=== PATIENT | female | born 1950 | race Asian ===

== ENCOUNTER 2016-08-29 10:31 | Observation (INO) | payer MEDICARE, OTHER ==
[~2016-08-29] VITALS: Ht 149.9 cm; Wt 61.1 kg
--- NOTE | ~2016-08-29 | CST ---
Cardiac Perfusion Imaging Demographics Patient Name URMILA Martin Gender Female Patient Number [id number] Race Visit Number [id number] Ethnicity Corporate ID Room Number 433 Accession Number [id number] Height 59 inches Date of 1950 Weight 134 pounds Age 66 year(s) BSA 1.56 m Referring Physician Richmond Gary BMI 27.06 kg/m Interpreting Physician [facility] [address] [place] Date of study 08/30/2016 King Talon Sutton MD Supervising MD/MLP King Talon DESAI Technologist Ben Kaplan Ordering Physician Richmond Gary Stress Omar Pérez MD predictive maintenance technician Stress ECG Reading [facility] Nurse Rena Dutton Physician King Talon Bryant The procedure was explained in detail to the patient. Risks, complications and alternative treatments were reviewed. Written consent was obtained. Medications Reviewed with Patient prior to Procedure. Procedure Procedure Type: Nuclear Stress Test:Cardiac Study SF Procedure Start time: 08/30/2016 08:10 Indications: Chest pain, Hypertension and Hyperlipidemia. Risk Factors The patient risk factors include:hypertension, insulin treated diabetes mellitus and dyslipidemia. Conclusions Summary Perfusion Images: The overall quality of the study is good. Left ventricular cavity is noted to be normal on the stress and rest studies. There is no evidence of abnormal lung activity. The right ventricle is not visualized and cannot be assessed. Stress SPECT images demonstrate homogenous tracer distribution throughout the myocardium. Rest SPECT images demonstrate homogenous tracer distribution throughout the myocardium. Gated SPECT imaging reveals normal myocardial thickening and wall motion. The left ventricular ejection fraction was calculated to be 79%. Impression ECG portion of stress test is clinically negative for ischemia by diagnostic criteria. Myocardial perfusion imaging is normal. Overall left ventricular systolic function was normal without regional wall motion abnormalities. There are no previous studies for comparison. Stress Protocols Resting ECG Normal sinus rhythm. Nonspecific ST-T wave changes. Resting HR:61 bpm Resting BP:112/76 mmHg Stress Protocol:Pharmacologic Predicted HR: 154 bpm Test duration: 06:00 min Reason for termination:Infusion complete ECG Findings Normal sinus rhythm. Nonspecific ST-T wave changes. Complications Procedure complication: None. Stress Interpretation Unable to achieve target heart rate with treadmill-changed to Lexiscan stress test Appropriate hemodynamic response to Lexiscan. No significant ST-T wave changes with Lexiscan. ECG portion is negative for ischemia by diagnostic criteria. Imaging Results Summed scores - Summed stress score: 0 - Summed rest score: 0 - Summed difference score: 0 Stress ejection Ejection fraction:79 % EDV :75 ml ESV :16 ml Stroke volume :59 ml LV mass :124 gr Imaging Protocols Rest Stress Isotope:Tc99m Myoview IV Isotope: Tc99m Myoview IV Isotope dose:10.8 mCi Isotope dose:31.8 mCi Date:08/30/2016 06:40 Date:08/30/2016 08:10 Technique: SPECT Technique: Gated Supine SPECT Supine IV remains in place after procedure. Scan Time:45-60 minutes post Scan Time:45-60 minutes post injection injection Procedure Medications - Regadenoson (Lexiscan) 0.4 mg IV over 10-15 sec. I.V. 0.4 mg. Medications administered per verbal order and read back to physician prior to administration. Medical History Admission Data Admission date: 08/29/2016 Admission Time: 12:35 Hospital Status: Inpatient. Signatures
--- NOTE | ~2016-08-29 | ECH ---
Transthoracic Echocardiography Report (TTE) Demographics Patient Name CHANTEL KEARNS Date of Study 08/29/2016 Patient Number [id number] Visit Number [id number] Date of 1950 Room Number 433 Accession Number [id number] Gender Female Age 66 year(s) Referring Scott Martin Tele Rn Radhanghia Sullivan [facility] Physician Physician Interpreting Brandi Porter MD Fiber Worker Physician Richmond Gary MD Supervising Ordering Physician Richmond Gary MD/CLARICE GUZMAN Nurse Stress Line Service Supervisor Conclusions Summary Technically adequate exam. The estimated left ventricular ejection fraction is 60%. Mild left ventricular hypertrophy. There is trivial aortic regurgitation by color Doppler. Mild mitral and tricuspid regurgitation. Procedure Type of Study TTE procedure:Echo Complete SF. Procedure Date Date: 08/29/2016 Start: 04:08 PM Technical Quality: Adequate visualization Indications:Atypical Chest Pain and Hypertension. Appropriate Use Criteria: 9 Height: 59 inches Weight: 134 pounds BSA: 1.56 m Rhythm: Within normal limits HR: 61 bpm BP: 159/74 mmHg M-Mode/2D Measurements LV Diastolic Dimension: 4.61 cm LV Systolic Dimension: 2.69 cm LV Septum Diastolic: 0.82 cm LV PW Diastolic: 1.11 cm AO Root Dimension: 2.75 cm Cardiac Output: 2.87 l/min LA Dimension: 2.72 cm Cardiac Index: 1.84 l/min*m RV Diastolic Dimension: 1.97 cm LA volume index: 27 ml/m LVOT: 1.65 cm LVOT VTI: 22.01 cm RV Base: 2.5 cm LV Stroke volume: 47.04 ml RV Mid: 1.6 cm LV Stroke volume index: 30.15 ml/m RV Length: 5.6 cm Doppler Measurements AV Peak Velocity: 1.05 m/s MV Peak E-Wave: 1.04 m/s AV Peak Gradient: 4.41 mmHg MV Peak A-Wave: 0.69 m/s AV Mean Gradient: 2.19 mmHg MV E/A Ratio: 1.5 LVOT Peak Velocity: 0.85 m/s MV P1/2t: 43 msec AV Area (Continuity):2.02 cm TR Velocity:2.82 m/s MV Deceleration Time: 148.4 msec TR Gradient:31.81 mmHg MV Area (PHT): 5.11 cm Estimated RAP:3 mmHg PV Peak Velocity: 0.7 m/s Estimated RVSP: 35 mmHg PV Peak Gradient: 1.98 mmHg Estimated PASP: 34.81 mmHg RA Area: 16.37 cm Findings Left Ventricle The left ventricle is normal in size . Mild left ventricular hypertrophy. Diastolic assessment reveals Grade II pseudonormal diastolic function . Right Ventricle Normal right ventricle structure and function. Left Atrium Normal left atrial size. Right Atrium Normal right atrial size. Mitral Valve Mild thickening of the mitral valve leaflets. Mild mitral regurgitation by color Doppler. Aortic Valve The aortic valve is mildly sclerotic. There is trivial aortic regurgitation by color Doppler. Tricuspid Valve Normal appearing tricuspid valve. Mild tricuspid regurgitation by color Doppler. Estimated pulmonary pressures within normal range. Pulmonic Valve Normal pulmonic valve structure and function. Pericardial Effusion No evidence of pericardial effusion. Miscellaneous Visualized portions of the aortic root and ascending aorta appear normal in size. Pleural Effusion No evidence of pleural effusion. Contractility Score LV regional wall motion:(0-Non visualized 1-Normal 2-Hypokinesis 3-Akinesis 4-Dyskinesis 5-Aneurysm) Signature
[2016-09-01] MEDS ORDERED: PRILOSEC DPS20 MG PO (08:36)
[2016-09-01] MEDS ORDERED: ZANAFLEX4 MG PO ×2 (08:37)
[2016-09-01] MEDS ORDERED: JANUMET 50-1,01 EACH PO (08:37)
[2016-09-01] MEDS ORDERED: LANTUS SOL100 UNIT/1 SQ (08:37)
[2016-09-01] MEDS ORDERED: LOPRESSOR DPS50 MG PO (08:38)
[2016-09-01] MEDS ORDERED: THERAPEUTIC MUL1 TAB PO (08:38)
[2016-09-01] MEDS ORDERED: ASA CHILDREN'S81 MG PO (08:39)
[2016-09-01] MEDS ORDERED: CALCIUM 600 +1 EAC3 PO (08:39)
[2016-09-01] MEDS ORDERED: COLACE-DPS100 MG PO (08:39)
[2016-09-01] MEDS ORDERED: EXCEDRIN DPS1 TAB PO (08:39)
[2016-09-01] MEDS ORDERED: TRILIPIX45 MG PO (08:40)
--- NOTE | 2016-09-04 11:58 | HP ---
ADMIT: 08/29/2016 RM/LOC: [address] [facility] MR#: [id number] [address] [address] CHANTEL KEARNS [address] [place] [address] History and Physical SEX: F AGE: 66 : 1950 DATE OF SERVICE: CHIEF COMPLAINT: Chest pain. HISTORY OF PRESENT ILLNESS: Chantel is a 66-year-old, female admitted to [facility] through the ER on August 29, 2016. She presents with 48-hour history of atypical chest pain. She states at times the pain was more like a pressure, at times it was sharp. Sometimes, it was just a vague discomfort. She states it has been there off and on all weekend. She states at times it is worse with activity and sometimes it seems to get worse when she is resting. She denied any nausea, vomiting, palpitations, or syncopal episodes. She presented to the ER where EKG and labs were obtained. She was given a couple sublingual nitroglycerin. Given her numerous cardiac risk factors, she was admitted for further evaluation and management. PAST MEDICAL HISTORY: Includes cholecystectomy, hysterectomy, peptic ulcer surgery with exploratory laparotomy, and open reduction and internal fixation of an elbow fracture. Illnesses include diabetes mellitus type 2, hypertension, and hyperlipidemia with no evidence of diabetic retinopathy. MEDICATIONS: Listed in her chart and include: 1. Omeprazole 20 mg at bedtime. 2. Zanaflex 4 mg at bedtime and 2 to 4 mg b.i.d. p.r.n. muscle spasms. 3. Janumet mg b.i.d. 4. Lantus 42 units at bedtime. 5. Metoprolol 50 mg b.i.d. 6. Multivitamin daily. 7. Calcium with vitamin D daily. 8. Aspirin 81 mg daily. 9. Excedrin p.r.n. ALLERGIES: NONE KNOWN. SOCIAL HISTORY: Is that of a 66-year-old, female. She does not smoke. FAMILY HISTORY: Remarkable for hypertension and diabetes. REVIEW OF SYSTEMS: Remarkable for chest pain. Remainder of review of systems negative. PHYSICAL EXAMINATION: VITAL SIGNS: Include blood pressure is elevated currently at 159/74 with a pulse of 66, respiratory rate 15, and temp 98.2. GENERAL APPEARANCE: Is that of a 66-year-old female, who is alert, oriented, appears in no acute distress. She is sitting comfortably, eating supper. HEENT: Pupils reactive. Membranes are moist. NECK: Without nodes or masses. HEART: Regular without murmur. LUNGS: Clear. ADMIT: 08/29/2016 RM/LOC: [address] [facility] MR#: [id number] [address] [address] CHANTEL KEARNS [facility] [place] [address] History and Physical SEX: F AGE: 66 : 1950 CHEST: Nontender to palpation. ABDOMEN: Soft, nontender, benign. No hepatosplenomegaly. BREASTS, GENITOURINARY, AND RECTAL: Deferred. EXTREMITIES: No clubbing, cyanosis, or edema. NEUROLOGIC: Grossly normal including light touch, strength, or DTRs. LABORATORY AND DIAGNOSTIC DATA: Chest x-ray is normal. EKG shows normal sinus rhythm and normal EKG. A chemistry panel is essentially normal. Sodium 143, potassium 4.4, BUN 14, and creatinine 0.8. Note her CPK was 196 with an MB of 1.7. Troponin I was less than 0.015. White count is 5.6, hemoglobin 13.4, and platelet count of 232,000. ASSESSMENT: 1. Atypical chest pain with chest pain rule out myocardial infarction evaluation with multiple cardiac risk factors. Other problems include diabetes mellitus type 2, previously well controlled. 2. Benign essential hypertension, well controlled. 3. Hyperlipidemia, well controlled. 4. History of peptic ulcer disease. 5. History of muscle tension headaches. PLAN: Serial cardiac enzymes and EKGs obtained. Echocardiogram and nuclear stress test were ordered. We will hold her metformin, give her half her scheduled Lantus, do Accu-Chek monitoring with sliding scale insulin. We will proceed with further evaluation and management based on course during hospitalization. Please see her hospital record for the details. Rocky Chavez MD/ sunita JOB #: [id number] CC: Rocky Chavez, Attending Physician Rocky Chavez, Family Physician
--- NOTE | 2016-09-05 10:31 | ER ---
ADMIT: 08/29/2016 RM/LOC: 433 [facility] MR#: [id number] 2620 [facility] [address] CHANTEL KEARNS [address] [place] [address] Emergency Room Report SEX: F AGE: 66 : 1950 DATE: 08/29/2016 ADDENDUM: A 66-year-old [place] female coming with chest pain. She has had it on and off since Monday. This has been going on for 3 days. EKG, chest x-ray, troponin, other labs, all negative. Pain relieved with nitroglycerin. We put an inch of paste on her. I spoke with Dr. Chavez. He will need to admit as a rule out. CONDITION ON DISCHARGE: Fair. Tee Ford MD/ sunita JOB #: [id number] CC: Rocky Chavez MD, Attending Physician Rocky Chavez MD, Family Physician
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
== END 2016-08-30 12:35 | disposition home or self-care (01) ==
LOC: ER 10:31 → 4PCU 12:35
PROVIDERS: ADMIT Family Medicine
DX: R07.89 Other chest pain (principal); I10 Essential (primary) hypertension; E78.5 Hyperlipidemia, unspecified; E11.9 Type 2 diabetes mellitus without complications; K21.9 Gastro-esophageal reflux disease without esophagitis; Z79.82 Long term (current) use of aspirin; Z90.49 Acquired absence of other specified parts of digestive tract; Z90.710 Acquired absence of both cervix and uterus; Z79.899 Other long term (current) drug therapy; Z79.4 Long term (current) use of insulin